=== PATIENT | male | born 1950 | race Caucasian/White ===

== ENCOUNTER 2021-06-02 00:44 | Inpatient (IN) | payer OTHER ==
[~2021-06-02] VITALS: Ht 182.9 cm; Wt 99.8 kg
[2021-06-02] VITALS (7 sets, daily range): BP systolic 141–215; BP diastolic 65–104
[2021-06-02] MEDS ORDERED: NITROGLYCERIN 0.4 MG TAB SL ONE ×2 (01:07→01:10)
--- NOTE | 2021-06-02 01:14 | NUR ---
blood collected and handed to ryan.
[2021-06-02] MEDS ORDERED: ONDANSETRON 4 MG/2 ML VIAL ONE (01:16)
[2021-06-02 01:18] LABS: BASOPHILS % (AUTO) 0.3 % (0.0-2.0); EOSINOPHILS # (AUTO) 0.3 K/uL (0-0.4); EOSINOPHILS % (AUTO) 3.7 % (0.0-4.0); HEMATOCRIT 44.5 % (36-52); HEMOGLOBIN 15.9 g/dL (12.0-18.0); LYMPHOCYTES # (AUTO) 2.6 K/uL (2.0-11.5); LYMPHOCYTES % (AUTO) 36.2 % (20.5-51.1); MEAN CORPUSCULAR HEMOGLOBIN 31 pg (27-31); MEAN CORPUSCULAR HGB CONC 36 g/dL (33-37); MEAN CORPUSCULAR VOLUME 85.5 fL (80-94); MONOCYTES # (AUTO) 0.5 K/uL (0.8-1.0); MONOCYTES % (AUTO) 7.3 % (1.7-9.3); NEUTROPHILS # (AUTO) 3.7 K/uL (1.8-7.7); NEUTROPHILS % (AUTO) 52.5 % (42.2-75.2); PLATELET COUNT (AUTO) 160 K/uL (140-450); RED BLOOD CELL COUNT(AUTO) 5.21 MIL/uL (4.20-6.10); RED CELL DISTRIBUTION WIDTH 13.2 % (11.6-13.7); WHITE BLOOD COUNT (AUTO) 7.1 K/uL (4.8-10.8)
--- NOTE | 2021-06-02 01:19 | NUR ---
rad at bedside.
[2021-06-02] MEDS ORDERED: ONDANSETRON 4 MG/2 ML VIAL IVP ONE (01:20)
--- NOTE | 2021-06-02 01:20 | NUR ---
70 YO M BIB SELF FOR C/O 04/16 NONRAD PRESSURE-LIKE SHARP CHEST PAIN STARTING 2 HOURS AGO. PATIENT STATES," I FELT A STRONG PRESSURE AND LAST TIME I FELT LIKE THIS MY BLOOD PRESSURE WAS HIGH." PATIENT ADMITS TO BEING NON-COMPLIANT WITH HTN RX. PATIENT TOOK UNKNOWN MG OF ASA AT HOME X 2 TABS. HX:HTN, PREDIABETIC RX:NONCOMPLIANT DENIES ALLERGIES
[2021-06-02 01:36] LABS: ALBUMIN 4.1 g/dL (3.4-5.0); ANION GAP 10.8 (8-16); CARBON DIOXIDE 31.9 mmol/L (21-32); CREATININE 1.5 mg/dL (0.6-1.3); POTASSIUM 3.7 mmol/L (3.5-5.1); TOTAL BILIRUBIN 0.6 mg/dL (0.0-1.0)
[2021-06-02] MEDS ORDERED: MORPHINE SULFATE 2 MG/ML SYR IVP ONE (01:55)
[2021-06-02] MEDS ORDERED: ONDANSETRON 4 MG/2 ML VIAL IVP PRN (02:30)
[2021-06-02] MEDS ORDERED: hydrALAZINE 20 MG/ML VIAL IVP PRN (02:30)
[2021-06-02] MEDS ORDERED: HYDROcodone/APAP 5/325 MG 1 TAB TAB PO PRN (02:30)
[2021-06-02] MEDS ORDERED: NACL 0.9% 1,000 ML IV SCH (02:30)
--- NOTE | 2021-06-02 03:05 | NUR ---
PT HAD EPISODE OF VOMITING. MEDICATED PER ORDER.
--- NOTE | 2021-06-02 03:30 | NUR ---
PT ARRIVED TO UNIT VIA GURNEY. AWAKE, A&OX4. NO S/S OF DISTRESS ON RA. BREATHING IS EVEN AND UNLABORED. DENIES PAIN AT THIS TIME. PT IS AMBULATORY. SKIN IS WARM, DRY AND INTACT. IV ON RIGHT AC 20G RUNNING NS @60MLS/HR. MRSA SWAB DONE. ORIENTED PT TO ROOM AND CALL LIGHT. ALL SAFETY MEASURES IN PLACE. WILL CONTINUE TO MONITOR.
--- NOTE | 2021-06-02 03:31 | NUR ---
CALLED [facility] FOR REPORT NO ANSWER.
--- NOTE | 2021-06-02 03:38 | NUR ---
REPORT GIVEN TO [facility] CHO.
--- NOTE | 2021-06-02 03:42 | NUR ---
Patient will be admitted to care of DR. HALL. Admited to TELE. Will go to room 119B. Belongings list completed. Report to [facility] CHO.
--- NOTE | 2021-06-02 05:40 | NUR ---
MADE ROUNDS ON PT, ASLEEP. NO S/S OF DISTRESS. RESPIRATIONS EVEN AND UNLABORED. CALL LIGHT WITHIN REACH. ALL SAFETY MEASURES IN PLACE. WILL CONTINUE TO MONITOR.
[2021-06-02 06:21] LABS: ALBUMIN 3.8 g/dL (3.4-5.0); ANION GAP 13.7 (8-16); CARBON DIOXIDE 26.3 mmol/L (21-32); CREATININE 1.3 mg/dL (0.6-1.3); TOTAL BILIRUBIN 0.5 mg/dL (0.0-1.0)
[2021-06-02 06:22] LABS: BASOPHILS % (AUTO) 0.3 % (0.0-2.0); EOSINOPHILS # (AUTO) 0.1 K/uL (0-0.4); EOSINOPHILS % (AUTO) 0.7 % (0.0-4.0); HEMATOCRIT 40.7 % (36-52); HEMOGLOBIN 14.4 g/dL (12.0-18.0); LYMPHOCYTES # (AUTO) 0.8 K/uL (2.0-11.5); LYMPHOCYTES % (AUTO) 10.1 % (20.5-51.1); MEAN CORPUSCULAR HEMOGLOBIN 30 pg (27-31); MEAN CORPUSCULAR HGB CONC 36 g/dL (33-37); MEAN CORPUSCULAR VOLUME 85.1 fL (80-94); MONOCYTES # (AUTO) 0.3 K/uL (0.8-1.0); MONOCYTES % (AUTO) 3.4 % (1.7-9.3); NEUTROPHILS % (AUTO) 85.5 % (42.2-75.2); PLATELET COUNT (AUTO) 190 K/uL (140-450); RED BLOOD CELL COUNT(AUTO) 4.78 MIL/uL (4.20-6.10); RED CELL DISTRIBUTION WIDTH 13.1 % (11.6-13.7); WHITE BLOOD COUNT (AUTO) 8.2 K/uL (4.8-10.8)
--- NOTE | 2021-06-02 07:40 | NUR ---
ENDORSED TO AM SHIFT NURSE FOR CONTINUITY OF CARE. PT IS STABLE.
--- NOTE | 2021-06-02 07:41 | NUR ---
RECEIVED PATIENT FROM INSURANCE COORDINATOR NURSE FOR CONTINUITY OF CARE. PATIENT IS ON TELE MONITOR. A/A/O X4. RESPIRATORY EVEN AND UNLABORED, ON ROOM AIR. NO SIGN OF DISTRESS NOTED. SKIN WARM, DRY, NON DIAPHORETIC. IV ON RIGHT AC 20G, INTACT AND PATENT, IS INFUSING FLUID ORDER. PATIENT DENIES ANY CHEST PAIN AT THIS TIME. DENIES ANY DISCOMFORT. ABLE TO MAKE NEED KNOWN. PLAN OF CARE DISCUSSED, PATIENT VERBALIZED UNDERSTANDING. PRECAUTION IN PLACE. CALL LIGHT WITHIN REACH. WILL CONTINUE TO MONITOR.
--- NOTE | 2021-06-02 09:00 | NUR ---
PATIENT IS AWAKE, RESTING IN BED, NO SIGN OF DISTRESS NOTED. PRECAUTION IN PLACE. CALL LIGHT WITHIN REACH. WILL CONTINUE TO MONITOR.
[2021-06-02] MEDS ORDERED: ONDANSETRON 4 MG/2 ML VIAL IM/IVP PRN (09:40)
[2021-06-02] MEDS ORDERED: guaiFENesin DM 200/20 MG-10 ML 10 ML UDC PO PRN (09:40)
[2021-06-02] MEDS ORDERED: HYDROcodone/APAP 7.5/325 MG 1 TAB PO PRN (09:40)
[2021-06-02] MEDS ORDERED: DOCUSATE SODIUM 100 MG GELCAP PO PRN (09:40)
[2021-06-02] MEDS ORDERED: ZOLPIDEM 5 MG TAB PO PRN (09:40)
[2021-06-02] MEDS ORDERED: NITROGLYCERIN 0.4 MG TAB SL PRN (09:40)
[2021-06-02] MEDS ORDERED: ACETAMINOPHEN 325 MG TAB PO PRN (09:40)
[2021-06-02] MEDS ORDERED: POTASSIUM CHLORIDE 10 MEQ TABER PO PRN (09:40)
[2021-06-02 10:54] LABS: CHOL/HDL RATIO 6.1 (1-4.5); MAGNESIUM 2.1 mg/dL (1.8-2.4); PHOSPHORUS 1.6 mg/dL (2.5-4.9)
[2021-06-02 10:55] LABS: FREE T4 (FREE THYROXINE) 0.69 ng/dL (0.76-1.46); THYROID STIMULATING HORMONE 2.5 uIU/mL (0.34-3.74)
[2021-06-02] MEDS: NACL 0.9% 1,000 ML IV SCH (10:55)
[2021-06-02 11:02] LABS: PROTHROMBIN TIME 10.8 secs (10.8-13.4)
--- NOTE | 2021-06-02 11:20 | NUR ---
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
--- NOTE | 2021-06-02 12:17 | NUR ---
DC PLANNING: THE PATIENT ADMITTED FROM HOME THROUGH THE ED WITH CHEST PAIN, 04/16. NO PREVIOUS CARDIAC HISTORY, H/O HTN AND DM, NON-COMPLIANT. TROPONINS WNL'S, IN NSR, LIPID PANEL ELEVATED. BUN ELEVATED, GFR LOW, GLUCOSE 265. ADMITTED FOR CARDIAC W/U AND TO R/O ACS. CARDIOLOGY ASSESSMENT NURSE ORDERED ECHO DONE WITH EF OF 55%, MILD LEFT VENTRICULAR HYPERTROPHY. DC PLAN IS FOR THE PATIENT TO RETURN HOME WHEN CLINICALLY STABLE, CM WILL FOLLOW FOR NEEDS.
[2021-06-02] MEDS: lisinopriL 10 MG TAB PO SCH ×2 (12:59→22:12)
--- NOTE | 2021-06-02 12:59 | NUR ---
SCHEDULE MEDICATION FOR HYPERTENSION GIVEN WITH EDUCATION. PATIENT VERBALIZED UNDERSTANDING. PATIENT TOLERATED WELL. PRECAUTION IN PLACE. CALL LIGHT WITHIN REACH. WILL CONTINUE TO MONITOR.
--- NOTE | 2021-06-02 14:00 | NUR ---
PATIENT IS SLEEPING, CHEST RISE AND FALL, AROUSABLE TO VOICE. NO SIGN OF DISTRESS NOTED. PRECAUTION IN PLACE. CALL LIGHT WITHIN REACH. WILL CONTINUE TO MONITOR.
--- NOTE | 2021-06-02 16:45 | NUR ---
URINE SPECIMEN COLLECTED.
--- NOTE | 2021-06-02 16:57 | NUR ---
NOTIFY DR AHLL, PATIENT'S PHOSPHORUS LEVEL IS 1.6. WAITING FOR RESPONSE.
[2021-06-02] MEDS ORDERED: ATORVASTATIN 20 MG TAB PO SCH (17:00)
[2021-06-02 17:51] LABS: APPEARANCE,URINE CLEAR (CLEAR); BILIRUBIN,URINE NEGATIVE (NEGATIVE); BLOOD, URINE NEGATIVE (NEGATIVE); COLOR,URINE YELLOW (YELLOW); LEUKOCYTE ESTERASE ,URINE NEGATIVE (NEGATIVE); NITRITE, URINE NEGATIVE (NEGATIVE); UGLUCOSE 3+ (NEGATIVE)
[2021-06-02 18:06] LABS: BARBITURATE, URINE NEGATIVE ng/ml (NEG <=200); BENZODIAZEPINE, URINE NEGATIVE ng/mL (NEG <=200); CANNABINOID, URINE NEGATIVE ng/mL (NEG <=50); COCAINE, URINE NEGATIVE ng/mL (NEG <=300); OPIATE, URINE POSITIVE ng/mL (NEG <=2000); PHENCYCLIDINE SCREEN,URINE NEGATIVE ng/mL (NEG <=25)
--- NOTE | 2021-06-02 19:12 | NUR ---
ENDORSED PATIENT TO BENDING MACHINE SET UP OPERATOR NURSE FOR CONTINUITY OF CARE. PATIENT IS STABLE.
--- NOTE | 2021-06-02 20:02 | NUR ---
REPORT WITH ISABELLA CATHERINE RN. PATIENT DENIES CHEST PAIN AT THIS TIME. MONITOR FOR PHARMACY APPROVAL OF PHOSPHORUS RIDER AND GIVE AVAILABLE. DESTINY ALLAN RN
[2021-06-02] MEDS ORDERED: METOPROLOL 25 MG TAB PO SCH (21:00)
[2021-06-02] MEDS: SODIUM PHOS / POTASSIUM PHOS 1 PKT PDR PO SCH (22:06)
[2021-06-03] VITALS: BP 141/62
[2021-06-03] MEDS: NACL 0.9% 1,000 ML IV SCH (03:15)
[2021-06-03 04:00] VITALS: BP 146/81
[2021-06-03 06:07] LABS: T4 (THYROXINE) 5.5 ug/dL (4.5-12.0)
[2021-06-03 06:15] LABS: BASOPHILS % (AUTO) 0.6 % (0.0-2.0); EOSINOPHILS # (AUTO) 0.2 K/uL (0-0.4); EOSINOPHILS % (AUTO) 3.2 % (0.0-4.0); HEMATOCRIT 40.5 % (36-52); HEMOGLOBIN 14.1 g/dL (12.0-18.0); LYMPHOCYTES # (AUTO) 2.2 K/uL (2.0-11.5); LYMPHOCYTES % (AUTO) 29.1 % (20.5-51.1); MEAN CORPUSCULAR HEMOGLOBIN 30 pg (27-31); MEAN CORPUSCULAR HGB CONC 35 g/dL (33-37); MEAN CORPUSCULAR VOLUME 85.9 fL (80-94); MONOCYTES # (AUTO) 0.6 K/uL (0.8-1.0); MONOCYTES % (AUTO) 7.5 % (1.7-9.3); NEUTROPHILS # (AUTO) 4.6 K/uL (1.8-7.7); NEUTROPHILS % (AUTO) 59.6 % (42.2-75.2); PLATELET COUNT (AUTO) 136 K/uL (140-450); RED BLOOD CELL COUNT(AUTO) 4.71 MIL/uL (4.20-6.10); RED CELL DISTRIBUTION WIDTH 13.2 % (11.6-13.7); WHITE BLOOD COUNT (AUTO) 7.7 K/uL (4.8-10.8)
[2021-06-03 06:39] LABS: ANION GAP 12.7 (8-16); CARBON DIOXIDE 25.5 mmol/L (21-32); CREATININE 1.3 mg/dL (0.6-1.3); POTASSIUM 4.2 mmol/L (3.5-5.1)
--- NOTE | 2021-06-03 07:20 | NUR ---
ENDORSED PT TO CHEMICAL MACHINE TENDER NURSE FOR CONTINUITY OF CARE. NO S/S OF DISTRESS. BREATHING SYMMETRICAL. CALL LIGHT IN REACH. ALL SAFETY MEASURES IN PLACE. IV RUNNING PER MD ORDER Addendum: 06/03/21 at 0936 by Felipe Philippe RN RN RECEIVED REPORT
--- NOTE | 2021-06-03 07:27 | NUR ---
HANDOFF WITH [facility]. DESTINY ALLAN RN
[2021-06-03 08:00] VITALS: BP 166/90
[2021-06-03] MEDS ORDERED: PANTOPRAZOLE 40 MG TABEC PO SCH (09:00)
[2021-06-03] MEDS ORDERED: lisinopriL 5 MG TAB PO SCH (09:00)
[2021-06-03] MEDS ORDERED: ECOTRIN 81 MG TABEC PO SCH (09:00)
[2021-06-03] MEDS ORDERED: ATORVASTATIN 20 MG TAB PO SCH (09:00)
[2021-06-03] MEDS: lisinopriL 10 MG TAB PO SCH (09:16)
[2021-06-03] MEDS: SODIUM PHOS / POTASSIUM PHOS 1 PKT PDR PO SCH ×3 (09:17→17:00)
--- NOTE | 2021-06-03 09:33 | NUR ---
PT RESTING IN BED. BREAKFAST AT BEDSIDE. NO S/S OF DISTRESS. BREATHING SYMMETRICAL. CALL LIGHT IN REACH. ALL SAFETY MEASURES IN PLACE. IV RUNNING PER MD ORDER
--- NOTE | 2021-06-03 11:26 | NUR ---
PT RESTING IN BED. NO S/S OF DISTRESS. BREATHING SYMMETRICAL. CALL LIGHT IN REACH. ALL SAFETY MEASURES IN PLACE. IV RUNNING PER MD ORDER
[2021-06-03 12:00] VITALS: BP 164/72
--- NOTE | 2021-06-03 13:41 | NUR ---
PT RESTING IN BED. NO S/S OF DISTRESS. BREATHING SYMMETRICAL. CALL LIGHT IN REACH. ALL SAFETY MEASURES IN PLACE. IV RUNNING PER MD ORDER
[2021-06-03] MEDS ORDERED: ASPI-1856 PO (14:10)
[2021-06-03] MEDS ORDERED: LISI10TA30 PO (14:10)
[2021-06-03] MEDS ORDERED: ATOR20TA40 PO (14:10)
--- NOTE | 2021-06-03 15:56 | NUR ---
PT SITTING IN CHAIR. DISCHARGE EDUCATION AND INSTRUCTION GIVEN. PT VERBALIZED UNDERSTANDING. TAXI VOUCHER PROVIDED. IV REMOVED, CANULA INTACT. ID BAND AND TELE MONITOR REMOVED. NO S/S OF DISTRESS. BREATHING SYMMETRICAL. CALL LIGHT IN REACH. ALL SAFETY MEASURES IN PLACE. WAITING ON TRANSPORTATION
[2021-06-03 16:00] VITALS: BP 161/86
--- NOTE | 2021-06-03 17:43 | NUR ---
SPOKE TO [employer]. NO AVAILABLE VEHICLES. ETA 1-2 HRS. PT NOTIFIED. PT SITTING IN CHAIR. CALL LIGHT IN REACH. ALL SAFETY MEASURES IN PLACE
[2021-06-03] MEDS ORDERED: lisinopriL 20 MG TAB PO SCH ×2 (18:15→18:25)
--- NOTE | 2021-06-03 19:36 | NUR ---
PT DISCHARGED HOME
== END 2021-06-03 19:02 | disposition home or self-care (01) | DRG 304 ==
LOC: MED 00:44 → MMU 02:36 → MTU 02:56
PROVIDERS: ADMIT Family Medicine; ATTEND Family Medicine
DX: I16.1 Hypertensive emergency (principal); N17.0 Acute kidney failure with tubular necrosis; I24.9 Acute ischemic heart disease, unspecified; E78.5 Hyperlipidemia, unspecified; E11.9 Type 2 diabetes mellitus without complications; E86.0 Dehydration; I10 Essential (primary) hypertension; Z91.14 Patient's other noncompliance with medication regimen
CPT/HCPCS: 36415; 71045; 80048; 80053; 80305; 81003; 82150; 83036; 83690; 83735; 83880; 84100; 84436; 84439; 84443; 84479; 84484; 85025; 85610; 85730; 87081; 93005; 96361; 96374; 96375; 96376; 99285; J0360; J2270; J2405